=== PATIENT | male | born 1975 | race Caucasian/White ===

== ENCOUNTER 2024-03-24 10:21 | Outpatient (CLI) | payer OTHER, SELFPAY | END 2024-03-24 10:22 | disposition home or self-care (01) | PROVIDERS: PCP Family Medicine; Visit Provider Family Medicine | DX: Z12.5 Encounter for screening for malignant neoplasm of prostate (principal); Z13.6 Encounter for screening for cardiovascular disorders; Z13.9 Encounter for screening, unspecified | CPT/HCPCS: 80048; 80061; 84460; G0103 ==

== ENCOUNTER 2024-04-24 08:45 | Outpatient (CLI) | payer OTHER, SELFPAY ==
--- NOTE | 2024-04-24 09:16 | W.ANESCHARGE ---
Anesthesia Charges Start Date/Time Anesthesia Start Date: 04/24/24 Anesthesia Start Time: 09:25 Stop Date/Time Anesthesia Stop Date: 04/24/24 Anesthesia Stop Time: 09:48 Coding CPT Codes CPT Codes: NIRMALA LWR INTST NDMO NOS - [id number] ([id number]) P1 - NORMAL HEALTHY PATIENT, QK - TOWER AIR TRAFFIC CONTROL SPECIALIST 2-4 CNCRNT ANES PROC, QX - ANIMAL NURSE SVC W/ MED DIRECTION
--- NOTE | 2024-04-24 09:59 | W.ANESCHARGE ---
Anesthesia Charges Start Date/Time Anesthesia Start Date: 04/24/24 Anesthesia Start Time: 09:25 Stop Date/Time Anesthesia Stop Date: 04/24/24 Anesthesia Stop Time: 09:48 Coding CPT Codes CPT Codes: NIRMALA LWR INTST NDCO NOS - [id number] ([id number]) P1 - NORMAL HEALTHY PATIENT, QK - AIR QUALITY INSTRUMENT SPECIALIST 2-4 CNCRNT ANES PROC, QX - YARN SALVAGER SVC W/ MED DIRECTION
== END 2024-04-24 08:46 | disposition home or self-care (01) ==
LOC: OP CLINIC 08:46
PROVIDERS: PCP Family Medicine; Visit Provider Surgery
DX: Z12.11 Encounter for screening for malignant neoplasm of colon (principal); D12.3 Benign neoplasm of transverse colon; K64.8 Other hemorrhoids; K57.30 Diverticulosis of large intestine without perforation or abscess without bleeding
CPT/HCPCS: 00811; 45385; 88305; J2704